=== PATIENT | male | born 1945 | race Caucasian/White ===

== ENCOUNTER 2017-09-11 10:41 | Inpatient (IN) | payer MEDICARE, OTHER ==
[2017-09-11] MEDS ORDERED: ONDANSETRON HCL INJ/PF 4 MG/2 ML SDV IV ONE (11:06)
[2017-09-11] MEDS ORDERED: RINGERS SOLUTION,LACTATED 1,000 ML IV ONE (11:06)
--- NOTE | 2017-09-11 11:09 | ER Document Report ---
ED Medical Screen (RME) - General Chief Complaint: Nausea/Vomiting/Diarrhea Stated Complaint: VOMITING Time Seen by Provider: 09/11/17 11:05 Notes: Patient says he is having vomiting and diarrhea for the past 6 days. He is having as many as 10-15 episodes of vomiting per day and just as many episodes of diarrhea. Has not seen any blood in the vomitus or the bowel movements. says he has lost about 14 pounds during this past week. He was seen at a local urgent care on Thursday and they gave him Zofran and Imodium, but cannot helping. Patient has not noted any fever. Past surgeries include appendix and gallbladder removals. History of insulin-dependent diabetes. TRAVEL OUTSIDE OF THE [place] IN LAST 30 DAYS: No - Related Data Allergies/Adverse Reactions: ciprofloxacin [From Cipro] Allergy (Verified 09/11/17 10:49) latex Allergy (Verified 09/11/17 10:49) levofloxacin [From Levaquin] Allergy (Verified 09/11/17 10:49) metformin Allergy (Verified 09/11/17 10:49) Penicillins Allergy (Verified 09/11/17 10:49) valdecoxib [From Bextra] Allergy (Verified 09/11/17 10:49) Home Medications: Current Home Medications Atorvastatin Calcium 40 mg PO DAILY 09/11/17 [History] Ergocalciferol (Vitamin D2) [Vitamin D] 1,000 units PO DAILY 09/11/17 [History] Glimepiride 4 mg PO DAILY 09/11/17 [History] Linagliptin [Tradjenta] 5 mg PO DAILY 09/11/17 [History] Past Medical History - Social History Chew tobacco use (# tins/day): No Frequency of alcohol use: None Drug Abuse: None Renal/ Medical History: Denies: Hx Peritoneal Dialysis Physical Exam - Vital signs Vitals: Temp Pulse Resp BP Pulse Ox 98.4 F 85 20 131/82 H 95 09/11/17 10:48 09/11/17 10:48 09/11/17 10:48 09/11/17 10:48 09/11/17 10:48 Course - Vital Signs Vital signs: Temp Pulse Resp BP Pulse Ox 98.4 F 85 20 131/82 H 95 09/11/17 10:48 09/11/17 10:48 09/11/17 10:48 09/11/17 10:48 09/11/17 10:48
[2017-09-11 11:42] LABS: ABSOLUTE MONOCYTES (AUTO) 1.8 10^3/uL (0.1-1.4); ABSOLUTE NEUT (AUTO) 9.3 10^3/uL (1.7-8.2); BASOPHILS % (AUTO) 0.2 % (0-2); EOSINOPHILS % (AUTO) 6.6 % (0-6); HEMATOCRIT 46.1 % (37.9-51.0); HEMOGLOBIN 15.4 g/dL (13.5-17.0); HGB HCT DIFFERENCE 0.1; MEAN CORPUSCULAR HEMOGLOBIN 29.9 pg (27.0-33.4); MEAN CORPUSCULAR HGB CONC 33.3 g/dL (32.0-36.0); MEAN CORPUSCULAR VOLUME 90 fl (80-97); MONOCYTES % (AUTO) 11.6 % (3-13); RED BLOOD COUNT 5.14 10^6/uL (4.35-5.55); SEGMENTED NEUTROPHILS % (AUTO) 61.6 % (42-78)
[2017-09-11 12:06] LABS: ALANINE AMINOTRANSFERASE 42 U/L (21-72); ALBUMIN 4.1 g/dL (3.5-5.0); ALKALINE PHOSPHATASE 81 U/L (38-126); ANION GAP 15 (5-19); ASPARTATE AMINO TRANSFERASE 22 U/L (17-59); BILIRUBIN,DIRECT 0.3 mg/dL (0.0-0.4); BILIRUBIN,TOTAL 0.7 mg/dL (0.2-1.3); BLOOD UREA NITROGEN 13 mg/dL (7-20); CALCIUM 9.5 mg/dL (8.4-10.2); CARBON DIOXIDE 27 mmol/L (22-30); CHLORIDE 104 mmol/L (98-107); CREATININE RESULT 0.88 mg/dL (0.52-1.25); GLUCOSE 120 mg/dL (75-110); LIPASE 197.4 U/L (23-300); SODIUM 146.4 mmol/L (137-145); TOTAL PROTEIN 6.4 g/dL (6.3-8.2)
[2017-09-11 12:25] LABS: APPEARANCE,URINE CLEAR; BILIRUBIN,URINE NEGATIVE (NEGATIVE); GLUCOSE, URINE NEGATIVE (NEGATIVE); KETONES,URINE NEGATIVE (NEGATIVE); LEUKOCYTE ESTERASE,URINE NEGATIVE (NEGATIVE); NITRITE,URINE NEGATIVE (NEGATIVE); PROTEIN,URINE 30 mg/dL (NEGATIVE); URINE SPECIFIC GRAVITY 1.025; UROBILINOGEN,URINE NEGATIVE mg/dL (<2.0)
--- NOTE | 2017-09-11 16:02 | RADIOLOGY REPORT (SQ) ---
EXAM DESCRIPTION: CT ABD/PELVIS WITH IV ORAL COMPLETED DATE/TIME: 09/11/2017 3:48 pm REASON FOR STUDY: abd pain, diarrhea COMPARISON: None. TECHNIQUE: CT scan of the abdomen and pelvis performed with intravenous and oral contrast using ashly inna scanning technique with dynamic intravenous contrast injection. Images reviewed with lung, soft t issue, and bone windows. Reconstructed coronal and sagittal MPR images reviewed. Delayed images for e valuation of the urinary system also acquired. All images stored on PACS. All CT scanners at this facility use dose modulation, iterative reconstruction, and/or weight based d osing when appropriate to reduce radiation dose to as low as reasonably achievable (ALARA). [facility]: Dose Right [facility]: CareDose [facility]: Dose Right [facility]: Teradose 4D [facility]: CriticalBlue CONTRAST TYPE AND DOSE: contrast/concentration: Isovue mg/ml; Total Contrast Delivered: 100.0 ml; T otal Saline Delivered: 70.1 ml RENAL FUNCTION: GFR > 60. RADIATION DOSE: CT Rad equipment meets quality standard of care and radiation dose reduction techniq ues were employed. CTDIvol: 16.6 - 19.5 mGy. DLP: 2053 mGy-cm. . LIMITATIONS: None. FINDINGS: LOWER CHEST: Interstitial changes appear chronic. LIVER: Normal size. No masses. No dilated ducts. SPLEEN: Normal size. No focal lesions. PANCREAS: No masses. No significant calcifications. No adjacent inflammation or peripancreatic fluid collections. Pancreatic duct not dilated. GALLBLADDER: Surgically absent. ADRENAL GLANDS: No significant masses or asymmetry. RIGHT KIDNEY AND URETER: No solid masses. No significant calcifications. No hydronephrosis or hyd roureter. LEFT KIDNEY AND URETER: No solid masses. No significant calcifications. No hydronephrosis or hydr oureter. AORTA AND VESSELS: Infrarenal abdominal aortic aneurysm measuring 5.2 x 4.6 cm. Mural thrombus. RETROPERITONEUM: No retroperitoneal adenopathy, hemorrhage or masses. BOWEL AND PERITONEAL CAVITY: No obstruction. No visualized masses. No free fluid. No inflammatory ch anges or thickening of bowel wall. APPENDIX: Normal. PELVIS: No significant masses. Normal bladder. No free fluid. ABDOMINAL WALL: No masses. No hernias. BONES: No significant or acute findings. OTHER: No other significant finding. IMPRESSION: Infrarenal abdominal aortic aneurysm measuring 5.2 x 4.6 cm. No explanation for diarrhea. TECHNICAL DOCUMENTATION: JOB ID: [id number] Quality ID # [id number]: Final reports with documentation of one or more dose reduction techniques (e.g., Au tomated exposure control, adjustment of the mA and/or kV according to patient size, use of iterative reconstruction technique) 2010 [employer]- All Rights Reserved
--- NOTE | 2017-09-11 16:31 | ER Document Report ---
ED GI/ - General Chief Complaint: Nausea/Vomiting/Diarrhea Stated Complaint: VOMITING Time Seen by Provider: 09/11/17 11:05 Notes: Patient states that he has had on and off diarrhea for several weeks now. Intermittent abdominal pain in the lower abdomen. Thirsty. Nothing seems to set well. Also having increased amount of vomiting. Denies any chest pain or shortness of breath. Here from out of town. Denies any recent antibiotic use. TRAVEL OUTSIDE OF THE [place] IN LAST 30 DAYS: No - HPI Patient complains to provider of: Abdominal pain, Diarrhea, Vomiting Onset: Last week Quality of pain: Achy Severity at maximum: Moderate Severity in ED: Moderate Pain Level: 2 Context: denies: Bad food, Lifting, Out of the country travel, , Recent trauma, Other Location: LLQ, RLQ Associated symptoms: Diarrhea, Vomiting - Related Data Allergies/Adverse Reactions: ciprofloxacin [From Cipro] Allergy (Verified 09/11/17 10:49) latex Allergy (Verified 09/11/17 10:49) levofloxacin [From Levaquin] Allergy (Verified 09/11/17 10:49) metformin Allergy (Verified 09/11/17 10:49) Penicillins Allergy (Verified 09/11/17 10:49) valdecoxib [From Bextra] Allergy (Verified 09/11/17 10:49) Home Medications: Current Home Medications Alfuzosin HCl [Alfuzosin HCl ER] 10 mg PO DAILY 09/11/17 [History] Amlodipine Besylate [Norvasc 5 mg Tablet] 5 mg PO DAILY 09/11/17 [History] Aspirin 81 mg PO DAILY 09/11/17 [History] Atorvastatin Calcium 40 mg PO DAILY 09/11/17 [History] Baclofen [Baclofen 10 mg Tablet] 10 mg PO BID 09/11/17 [History] Clopidogrel Bisulfate [Clopidogrel] 75 mg PO DAILY 09/11/17 [History] Duloxetine HCl [Cymbalta] 60 mg PO DAILY 09/11/17 [History] Ergocalciferol (Vitamin D2) [Vitamin D] 1,000 units PO DAILY 09/11/17 [History] Glimepiride 4 mg PO DAILY 09/11/17 [History] Insulin Degludec [Tresiba Flextouch U-100] 32 unit SQ DAILY 09/11/17 [History] Isosorbide Mononitrate [Isosorbide Mononitrate ER] 30 mg PO DAILY 09/11/17 [ History] Levothyroxine Sodium 100 mcg PO DAILY 09/11/17 [History] Linagliptin [Tradjenta] 5 mg PO DAILY 09/11/17 [History] Mirabegron [Myrbetriq] 25 mg PO DAILY 09/11/17 [History] [place]-3 Fatty Acids/Fish Oil [Fish Oil 1,000 mg Capsule] 1,000 mg PO DAILY 09/11 [History] Pantoprazole Sodium [Protonix] 40 mg PO DAILY 09/11/17 [History] Pirfenidone [Esbriet] 267 mg PO DAILY 09/11/17 [History] Past Medical History - General Information source: Patient - Social History Smoking Status: Never Smoker Chew tobacco use (# tins/day): No Frequency of alcohol use: None Drug Abuse: None Lives with: Spouse/Significant other Family History: Reviewed & Not Pertinent Patient has suicidal ideation: No Patient has homicidal ideation: No Endocrine Medical History: Reports: Hx Diabetes Mellitus Type 2 Renal/ Medical History: Denies: Hx Peritoneal Dialysis Musculoskeltal Medical History: Reports Hx Arthritis Review of Systems - Review of Systems Constitutional: No symptoms reported EENT: No symptoms reported Cardiovascular: No symptoms reported Respiratory: No symptoms reported Gastrointestinal: Abdominal pain, Diarrhea, Nausea, Vomiting Genitourinary: No symptoms reported Male Genitourinary: No symptoms reported Musculoskeletal: No symptoms reported Skin: No symptoms reported Hematologic/Lymphatic: No symptoms reported Neurological/Psychological: No symptoms reported Physical Exam - Vital signs Vitals: Temp Pulse Resp BP Pulse Ox 98.4 F 85 20 131/82 H 95 09/11/17 10:48 09/11/17 10:48 09/11/17 10:48 09/11/17 10:48 09/11/17 10:48 Interpretation: Normal - General General appearance: Appears well, Alert - HEENT Head: Normocephalic, Atraumatic Eyes: Normal Pupils: PERRL - Respiratory Respiratory status: No respiratory distress Chest status: Nontender Breath sounds: Normal Chest palpation: Normal - Cardiovascular Rhythm: Regular Heart sounds: Normal auscultation Murmur: No - Abdominal Inspection: Normal Distension: No distension Bowel sounds: Normal Tenderness: Tender - Bilateral lower quadrant Organomegaly: No organomegaly - Back Back: Normal, Nontender - Extremities General upper extremity: Normal inspection, Nontender, Normal color, Normal ROM , Normal temperature General lower extremity: Normal inspection, Nontender, Normal color, Normal ROM , Normal temperature, Normal weight bearing. No: David's sign - Neurological Neuro grossly intact: Yes Cognition: Normal Orientation: AAOx4 Dorene Coma Scale Eye Opening: Spontaneous Hanna Coma Scale Verbal: Oriented Hanna Coma Scale Motor: Obeys Commands Dorene Coma Scale Total: 15 Speech: Normal Motor strength normal: LUE, RUE, LLE, RLE Sensory: Normal - Psychological Associated symptoms: Normal affect, Normal mood - Skin Skin Temperature: Warm Skin Moisture: Dry Skin Color: Normal Course - Re-evaluation Re-evalutation: 09/11/17 16:47 No obvious reason why patient is having intractable nausea vomiting and diarrhea. Does have an elevated WBC count. We will give him some hydrocodone here. Has had some fluids. Will consult hospitalist for admission at this time. 09/11/17 16:47 Hospitalist has been consulted. Dr. Martino will place in observation and will evaluate patient. - Vital Signs Vital signs: Temp Pulse Resp BP Pulse Ox 98.4 F 68 16 129/87 H 97 09/11/17 10:48 09/11/17 16:26 09/11/17 16:26 09/11/17 16:26 09/11/17 16:26 - Laboratory Result Diagrams: 09/11/17 11:23 09/11/17 11:23 Laboratory results interpreted by me: 09/11/17 09/11/17 09/11/17 11:23 11:23 11:50 WBC 15.0 H RDW 15.0 H Eosinophils % 6.6 H Absolute Neutrophils 9.3 H Absolute Monocytes 1.8 H Absolute Eosinophils 1.0 H Sodium 146.4 H Glucose 120 H Urine Protein 30 H Discharge - Discharge Clinical Impression: Intractable vomiting Qualifiers: Vomiting type: unspecified Nausea presence: unspecified Qualified Code(s): R11.10 - Vomiting, unspecified Diarrhea Qualifiers: Diarrhea type: unspecified type Qualified Code(s): R19.7 - Diarrhea, unspecified Disposition: ADMITTED OBSERVATION Admitting Provider: Hospitalist Unit Admitted: Medical Floor
[2017-09-11] MEDS ORDERED: HYDROCODONE/ACETAMINOPHEN 5-325 MG TABLET PO ONE (16:46)
[2017-09-11] MEDS ORDERED: ONDANSETRON 4 MG TAB.RAPDIS PO PRN (17:56)
[2017-09-11] MEDS ORDERED: ACETAMINOPHEN 325 MG TABLET PO PRN (17:56)
[2017-09-11] MEDS ORDERED: TEMAZEPAM 15 MG CAPSULE PO PRN (17:56)
--- NOTE | 2017-09-11 17:56 | PDOC H&P ---
History of Present Illness Admission Date/PCP: Out of town PCP: Abhi Hector Patient complains of: Severe vomitting and diarrhea. History of Present Illness: KHURRAM BLOOM is a 72 year old male who is currently in town visiting family. Normally, he lives in [place]. The patient is here with his . They drove here last Thursday. On Thursday he was feeling fine. Thursday morning he woke up and developed horrible cramping in his lower abdomen followed by explosive diarrhea. Initially, he had several hours worth of diarrhea. Then he started to have vomiting with diarrhea. The diarrhea is uncontrollable and explosive. It is waking him up from sleep. Every time he tries to drink fluids he vomits the fluids. The fluids also aggravate the diarrhea. He has not had any fevers. He has not noticed any blood in the diarrhea. He has no ill contacts. He has been with his very closely and she is not ill. He has been visiting family into homes and no one is ill. The only thing that he ate which was different than his is chicken [employer] main in the [facility] while they were driving on Thursday. The patient started to feel better on Thursday and a part of a sandwich. About an hour later this led to worsened nausea, vomiting or diarrhea. He went to see a provider at urgent care on Thursday and was started on Zofran. Unfortunately, he has been using the Zofran as prescribed without any relief. He tried to eat turkey and mashed potatoes yesterday but his symptoms got progressively worse. He describes the diarrhea is foul-smelling. He describes the color is green and angulo. His urine is dark. His only other symptoms are intermittent frontal headaches. He feels generally weak and states that he has lost 14 pounds since last Thursday. Past Medical History Cardiac Medical History: Reports: Coronary Artery Disease, Other - Stents, bradycardia, pacemaker Pulmonary History Note: pulmonary fibrosis Neurological Medical History: Reports: Other - TIA Endocrine Medical History: Reports: Diabetes Mellitus Type 2 GI Medical History: Reports: None GI History Note: Patient may have mild IBS and a remote history of diverticulosis Musculoskeltal Medical History: Reports: Arthritis, Fibromyalgia Past Surgical History Past Surgical History: Reports: Appendectomy, Cholecystectomy, Coronary Artery Bypass Graft, Coronary Stent, Orthopedic Surgery, Pacemaker, Other - Umbilical abscess in 1989 Social History Lives with: Spouse/Significant other Smoking Status: Former Smoker Frequency of Alcohol Use: None Hx Recreational Drug Use: No Drugs: None Hx Prescription Drug Abuse: No - Advance Directive Resuscitation Status: Full Code Surrogate healthcare decision maker:: Family History Family History: Reviewed & Not Pertinent Parental Family History Reviewed: Yes - Father: VT age 69 leading to ; mother: Aneurysm, COPD Children Family History Reviewed: No Sibling(s) Family History Reviewed.: No Medication/Allergy Home Medications: Alfuzosin HCl [Alfuzosin HCl ER] 10 mg PO DAILY 09/11/17 Amlodipine Besylate [Norvasc 5 mg Tablet] 5 mg PO DAILY 09/11/17 Aspirin 81 mg PO DAILY 09/11/17 Atorvastatin Calcium 40 mg PO DAILY 09/11/17 Baclofen [Baclofen 10 mg Tablet] 10 mg PO BID 09/11/17 Clopidogrel Bisulfate [Clopidogrel] 75 mg PO DAILY 09/11/17 Duloxetine HCl [Cymbalta] 60 mg PO DAILY 09/11/17 Ergocalciferol (Vitamin D2) [Vitamin D] 1,000 units PO DAILY 09/11/17 Glimepiride 4 mg PO DAILY 09/11/17 Insulin Degludec [Tresiba Flextouch U-100] 32 unit SQ DAILY 09/11/17 Isosorbide Mononitrate [Isosorbide Mononitrate ER] 30 mg PO DAILY 09/11/17 Levothyroxine Sodium 100 mcg PO DAILY 09/11/17 Linagliptin [Tradjenta] 5 mg PO DAILY 09/11/17 Mirabegron [Myrbetriq] 25 mg PO DAILY 09/11/17 [place]-3 Fatty Acids/Fish Oil [Fish Oil 1,000 mg Capsule] 1,000 mg PO DAILY 09/11 Pantoprazole Sodium [Protonix] 40 mg PO DAILY 09/11/17 Pirfenidone [Esbriet] 267 mg PO DAILY 09/11/17 Allergies/Adverse Reactions: ciprofloxacin [From Cipro] Allergy (Verified 09/11/17 10:49) latex Allergy (Verified 09/11/17 10:49) levofloxacin [From Levaquin] Allergy (Verified 09/11/17 10:49) metformin Allergy (Verified 09/11/17 10:49) Penicillins Allergy (Verified 09/11/17 10:49) valdecoxib [From Bextra] Allergy (Verified 09/11/17 10:49) Review of Systems Constitutional: PRESENT: fatigue, headache(s), weight loss Eyes: ABSENT: visual disturbances Ears: ABSENT: hearing changes Nose, Mouth, and Throat: ABSENT: as per HPI, headache(s), mouth pain, sore throat, vertigo, other Breasts: ABSENT: as per HPI, other Cardiovascular: ABSENT: chest pain, dyspnea on exertion, edema, orthropnea, palpitations Respiratory: PRESENT: as per HPI Gastrointestinal: PRESENT: as per HPI Genitourinary: ABSENT: dysuria, hematuria Musculoskeletal: ABSENT: joint swelling Integumentary: ABSENT: rash, wounds Neurological: ABSENT: abnormal gait, abnormal speech, confusion, dizziness, focal weakness, syncope Psychiatric: ABSENT: anxiety, depression, homidical ideation, suicidal ideation Endocrine: ABSENT: cold intolerance, heat intolerance, polydipsia, polyuria Hematologic/Lymphatic: ABSENT: easy bleeding, easy bruising Allergic/Immunologic: ABSENT: as per HPI, seasonal rhinorrhea, other Physical Exam Vital Signs: Temp Pulse Resp BP Pulse Ox 98.4 F 68 16 129/87 H 97 09/11/17 10:48 09/11/17 16:26 09/11/17 16:26 09/11/17 16:26 09/11/17 16:26 Intake & Output 09/10/17 09/11/17 09/12/17 06:59 06:59 06:59 Weight 99.5 kg Additional comments: The patient does not appear to be in any distress. His cognition and mentation are appropriate. He is able to follow all commands. His facial appearance is normal. Cranial nerves II through XII are intact. The lips are slightly dry, but, the mucous membranes appear to be moist. The patient has many teeth missing, but, his dentition is fair. His neck is supple. The trachea is midline. Thyroid is nonpalpable. He does not have any JVD. He does not have any cervical, supraclavicular or axillary lymphadenopathy. His lungs are clear anteriorly. He does have Velcro rales in the posterior lung pelaez at the bases. The extend one quarter of the way up. The cardiac exam is regular. I do not appreciate any murmurs, gallops or rubs. The abdomen is diffusely distended but not tympanitic. Bowel sounds are present and are hyperactive. The patient has a diffuse tenderness throughout the abdomen. I do not appreciate any guarding or rebound and there are no hernias or masses present. The lower extremities are warm to touch. The patient does not have any acute skin lesions or rashes. The patient does not have any pitting edema. Results Laboratory Results: 09/11/17 11:23 09/11/17 11:23 09/11/17 09/11/17 09/11/17 11:23 11:23 11:50 WBC 15.0 H RBC 5.14 Hgb 15.4 Hct 46.1 MCV 90 MCH 29.9 MCHC 33.3 RDW 15.0 H Plt Count 286 Seg Neutrophils % 61.6 Lymphocytes % 20.0 Monocytes % 11.6 Eosinophils % 6.6 H Basophils % 0.2 Absolute Neutrophils 9.3 H Absolute Lymphocytes 3.0 Absolute Monocytes 1.8 H Absolute Eosinophils 1.0 H Absolute Basophils 0.0 Sodium 146.4 H Potassium 4.0 Chloride 104 Carbon Dioxide 27 Anion Gap 15 BUN 13 Creatinine 0.88 Est GFR ( Amer) > 60 Est GFR (Non-Af Amer) > 60 Glucose 120 H Calcium 9.5 Total Bilirubin 0.7 AST 22 ALT 42 Alkaline Phosphatase 81 Total Protein 6.4 Albumin 4.1 Lipase 197.4 Urine Color YELLOW Urine Appearance CLEAR Urine pH 5.0 Ur Specific [place] 1.025 Urine Protein 30 H Urine Glucose (UA) NEGATIVE Urine Ketones NEGATIVE Urine Blood NEGATIVE Urine Nitrite NEGATIVE Ur Leukocyte Esterase NEGATIVE Urine WBC (Auto) 2 Urine RBC (Auto) 1 Stool Occult Blood 09/11/17 14:55 WBC RBC Hgb Hct MCV MCH MCHC RDW Plt Count Seg Neutrophils % Lymphocytes % Monocytes % Eosinophils % Basophils % Absolute Neutrophils Absolute Lymphocytes Absolute Monocytes Absolute Eosinophils Absolute Basophils Sodium Potassium Chloride Carbon Dioxide Anion Gap BUN Creatinine Est GFR ( Amer) Est GFR (Non-Af Amer) Glucose Calcium Total Bilirubin AST ALT Alkaline Phosphatase Total Protein Albumin Lipase Urine Color Urine Appearance Urine pH Ur Specific [place] Urine Protein Urine Glucose (UA) Urine Ketones Urine Blood Urine Nitrite Ur Leukocyte Esterase Urine WBC (Auto) Urine RBC (Auto) Stool Occult Blood NEGATIVE Impressions: Abdomen/Pelvis CT 09/11/17 00:00 IMPRESSION: Infrarenal abdominal aortic aneurysm measuring 5.2 x 4.6 cm. No explanation for diarrhea. Assessment & Plan - Diagnosis (1) Diarrhea Qualifiers: Diarrhea type: unspecified type Qualified Code(s): R19.7 - Diarrhea, unspecified Is this a current diagnosis for this admission?: Yes Plan: C. difficile toxin assay is negative. Cultures have been ordered and are pending. The differential includes infectious diarrhea, food poisoning, medication effect or diffuse colitis. This is unlikely to be infectious as no other family members are ill. However, if an organism has a long incubation. We still need to consider infections. Food poisoning should be more self- limited than this patient's illness. I will need to check the patient's current medications. There is no evidence of colitis on the CT scan which is reassuring. The patient will be treated supportively for now. I will hold off on antibiotics. (2) Intractable vomiting Qualifiers: Vomiting type: unspecified Nausea presence: unspecified Qualified Code(s) : R11.10 - Vomiting, unspecified Is this a current diagnosis for this admission?: Yes Plan: Continue supportive treatment. Differential as above. (3) Eosinophilic leukocytosis Is this a current diagnosis for this admission?: Yes Plan: This is likely associated with the acute illness. Further investigation for parasites may be warranted. (4) Diabetes type 2, controlled Qualifiers: Diabetes mellitus complication detail: with unspecified neuropathy Is this a current diagnosis for this admission?: Yes Plan: For now, I will hold long-acting insulin and treat with sliding scale. (5) Neuropathy Is this a current diagnosis for this admission?: Yes (6) Coronary artery disease Is this a current diagnosis for this admission?: Yes Plan: I will continue the patient's cardiac medications. (7) Cerebrovascular disease Is this a current diagnosis for this admission?: Yes (8) Hypothyroidism Is this a current diagnosis for this admission?: Yes Plan: Continue supplementation with Synthroid. (9) Pulmonary fibrosis Is this a current diagnosis for this admission?: Yes Plan: I will ensure that pirfenidone is not associated with this side effect and if it is not I will continue the medication. - Time Time Spent: 50 to 70 Minutes - Inpatient Certification Medical Necessity: Need Close Monitoring Due to Risk of Patient Decompensation, Need For IV Fluids, Risk of Complication if Not Cared For in Hospital - Plan Summary Plan Summary: The patient will be placed on observation status. Despite the fact that he has had severe symptoms for almost a week he does not have any significant laboratory abnormalities. I would have expected his bicarbonate to be very low. He may have a superimposed metabolic alkalosis. In any event, his vital signs are normal and his laboratory work is fairly normal. Therefore, I will try to treat the patient with fluids overnight. I will keep him on clears and try to advance his diet tomorrow. I will wait for the results and determine tomorrow whether or not he can be discharged with close follow-up. Since he lives out of town we may need to extend his hospitalization to determine the etiology so that we know more precisely how to treat the patient.
[2017-09-11] MEDS ORDERED: OXYCODONE HCL IR 5 MG TABLET PO PRN (18:05)
[2017-09-11] MEDS ORDERED: DEXTROSE 40% GEL 15 GM TUBE PO PRN ×2 (18:11)
[2017-09-11] MEDS ORDERED: GLUCAGON,HUMAN RECOMB 1 MG INJ IM PRN (18:11)
[2017-09-11] MEDS ORDERED: DEXTROSE 50%-WATER 25 GM/50 ML DISP.SYRIN IV PRN ×2 (18:11)
[2017-09-11] MEDS: ATORVASTATIN CALCIUM 40 MG TABLET PO SCH (22:16)
[2017-09-11] MEDS: FAMOTIDINE INJ/PF 20 MG/2 ML SDV IV SCH (22:16)
[2017-09-12] MEDS: LEVOTHYROXINE SODIUM 0.1 MG TABLET PO SCH (05:03)
[2017-09-12 06:54] LABS: ABSOLUTE BASOPHILS # (AUTO) 0.1 10^3/uL (0.0-0.2); ABSOLUTE LYMPHOCYTES (AUTO) 3.7 10^3/uL (0.5-4.7); ABSOLUTE MONOCYTES (AUTO) 1.6 10^3/uL (0.1-1.4); ABSOLUTE NEUT (AUTO) 6.2 10^3/uL (1.7-8.2); BASOPHILS % (AUTO) 0.9 % (0-2); EOSINOPHILS % (AUTO) 7.9 % (0-6); HEMATOCRIT 40.3 % (37.9-51.0); HEMOGLOBIN 13.6 g/dL (13.5-17.0); HGB HCT DIFFERENCE 0.5; LYMPHOCYTES % (AUTO) 29.4 % (13-45); MEAN CORPUSCULAR HEMOGLOBIN 30.5 pg (27.0-33.4); MEAN CORPUSCULAR HGB CONC 33.8 g/dL (32.0-36.0); MEAN CORPUSCULAR VOLUME 90 fl (80-97); MONOCYTES % (AUTO) 12.5 % (3-13); RED BLOOD COUNT 4.47 10^6/uL (4.35-5.55); RED CELL DISTRIBUTION WIDTH 14.8 % (11.5-14.0); SEGMENTED NEUTROPHILS % (AUTO) 49.3 % (42-78); WHITE BLOOD COUNT 12.7 10^3/uL (4.0-10.5)
[2017-09-12 07:24] LABS: ANION GAP 13 (5-19); BLOOD UREA NITROGEN 9 mg/dL (7-20); CALCIUM 8.7 mg/dL (8.4-10.2); CARBON DIOXIDE 26 mmol/L (22-30); CHLORIDE 106 mmol/L (98-107); CREATININE RESULT 0.84 mg/dL (0.52-1.25); GLUCOSE 90 mg/dL (75-110); MAGNESIUM 1.6 mg/dL (1.6-2.3); PHOSPHORUS 3.4 mg/dL (2.5-4.5); POTASSIUM 3.7 mmol/L (3.6-5.0); SODIUM 144.9 mmol/L (137-145)
[2017-09-12] MEDS: DEXTROSE 5%-1/2 NORMAL SALINE 1,000 ML IV PRN ×2 (08:25→21:56)
[2017-09-12] MEDS: BACLOFEN 10 MG TABLET PO SCH ×2 (09:24→16:56)
[2017-09-12] MEDS: CHOLECALCIFEROL (D3) 1,000 UNIT TABLET PO SCH (09:24)
[2017-09-12] MEDS: ASPIRIN 81 MG TABLET, CHEWABLE PO SCH (09:24)
[2017-09-12] MEDS: AMLODIPINE BESYLATE 5 MG TABLET PO SCH (09:24)
[2017-09-12] MEDS: ISOSORBIDE MONONITRATE 30 MG TAB.ER.24H PO SCH (09:25)
[2017-09-12] MEDS: CLOPIDOGREL BISULFATE 75 MG TABLET PO SCH (09:25)
[2017-09-12] MEDS: FAMOTIDINE INJ/PF 20 MG/2 ML SDV IV SCH ×2 (09:25→21:55)
[2017-09-12] MEDS: DULOXETINE HCL 30 MG CAPSULE.DR PO SCH (09:25)
[2017-09-12] MEDS ORDERED: PIRFENIDONE 267 MG PO SCH (10:00)
[2017-09-12] MEDS ORDERED: ERGOCALCIFEROL 1000 UNIT PO SCH (10:00)
[2017-09-12] MEDS ORDERED: (PENDING PHARMACY ID) (Alfuzosin Hcl [Alfuzosin Hcl Er] 10 MG) PO SCH (10:00)
--- NOTE | 2017-09-12 16:09 | RADIOLOGY REPORT (SQ) ---
EXAM DESCRIPTION: CT HEAD WITHOUT COMPLETED DATE/TIME: 09/12/2017 3:57 pm REASON FOR STUDY: DIARRHEA NO CHARGE TO PATIENT A05.1 BOTULISM FOOD POISONING COMPARISON: None. TECHNIQUE: Axial images acquired through the brain without intravenous contrast. Images reviewed wi th bone, brain and subdural windows. Images stored on PACS. All CT scanners at this facility use dose modulation, iterative reconstruction, and/or weight based d osing when appropriate to reduce radiation dose to as low as reasonably achievable (ALARA). [facility]: Dose Right [facility]: CareDose [facility]: Dose Right [facility]: Teradose 4D [facility]: [place] RADIATION DOSE: mGy. LIMITATIONS: None. FINDINGS: NOTE: Initially interpreted under the incorrect name on 09/11/2017. Re- interpreted and officially read dictated on 09/12/2017. VENTRICLES: Normal size and contour. CEREBRUM: No masses. No hemorrhage. No midline shift. No evidence for acute infarction. Normal gra y/white matter differentiation. No areas of low density in the white matter. CEREBELLUM: No masses. No hemorrhage. No alteration of density. No evidence for acute infarction. EXTRAAXIAL SPACES: No fluid collections. No masses. ORBITS AND GLOBE: No intra- or extraconal masses. Normal contour of globe without masses. CALVARIUM: No fracture. PARANASAL SINUSES: Chronic right maxillary mucosal thickening. SOFT TISSUES: No mass or hematoma. OTHER: No other significant finding. IMPRESSION: No acute intracranial abnormality. EVIDENCE OF ACUTE STROKE: NO. COMMENT: Quality ID # [id number]: Final reports with documentation of one or more dose reduction techniques (e.g., Automated exposure control, adjustment of the mA and/or kV according to patient size, use of iterative reconstruction technique) TECHNICAL DOCUMENTATION: JOB ID: [id number] [email or web address]- All Rights Reserved
--- NOTE | 2017-09-12 16:11 | RADIOLOGY REPORT (SQ) ---
EXAM DESCRIPTION: CT CERVICAL SPINE WITHOUT COMPLETED DATE/TIME: 09/12/2017 3:57 pm REASON FOR STUDY: DIARRHEA NO CHARGE TO PATIENT A05.1 BOTULISM FOOD POISONING COMPARISON: None. TECHNIQUE: Axial images acquired through the cervical spine without intravenous contrast. Images re viewed with lung, soft tissue and bone windows. Reconstructed coronal and sagittal MPR images review ed. Images stored on PACS. All CT scanners at this facility use dose modulation, iterative reconstruction, and/or weight based d osing when appropriate to reduce radiation dose to as low as reasonably achievable (ALARA). [facility]: Dose Right [facility]: CareDose [facility]: Dose Right [facility]: Teradose 4D [facility]: [employer] RADIATION DOSE: mGy. LIMITATIONS: None. FINDINGS: Note: Initially interpreted under the wrong name on 09/11/2017. Returned for reinterpreta tion and re-dictation on 09/12/2017. ALIGNMENT: Anatomic. MINERALIZATION: Normal. VERTEBRAL BODIES: No fractures or dislocation. DISCS: Disc disease with small disc osteophyte complexes at C4-5 and C5-6 particularly. FACETS, LATERAL MASSES, POSTERIOR ELEMENTS: Facet arthropathy. No fractures. No dislocation. No ac leighton findings. HARDWARE: None in the spine. VISUALIZED RIBS: No fractures. LUNG APICES AND SOFT TISSUES: Apical emphysema. 2 cm right thyroid nodule. OTHER: No other significant finding. IMPRESSION: Chronic degenerative cervical spine changes without evidence of acute fracture or malali gnment. TECHNICAL DOCUMENTATION: JOB ID: [id number] Quality ID # [id number]: Final reports with documentation of one or more dose reduction techniques (e.g., Au tomated exposure control, adjustment of the mA and/or kV according to patient size, use of iterative reconstruction technique) 2010 [employer]- All Rights Reserved
--- NOTE | 2017-09-12 16:48 | PDOC PROGRESS REPORT ---
Subjective Progress Note for:: 09/12/17 Subjective:: The patient is admitted for intractable nausea, vomiting and diarrhea. His symptoms started approximately 10 days ago. He has lost a total of 14 pounds. The patient was placed in observation status. This morning, he felt slightly better. Therefore, I advanced his diet from clears to a low fat low residue diet. After he ate lunch within 1 hour he started to have profuse diarrhea again. Therefore, patient is not ready for discharge. Currently, his stool sample is unremarkable, but, I will not have the final results until tomorrow. The patient does not live in the [facility]. He is from [place]. I feel that the patient must have his test results prior to being discharged and prior to being able to drive back to [place]. He notes less abdominal pain this morning, but, he has taken oxycodone on 2 occasions. Physical Exam Vital Signs: Temp Pulse Resp BP Pulse Ox 98.3 F 63 16 141/84 H 98 09/12/17 08:37 09/12/17 08:37 09/12/17 08:37 09/12/17 08:37 09/12/17 08:37 Intake & Output 09/11/17 09/12/17 09/13/17 06:59 06:59 06:59 Intake Total 1405 Output Total 900 Balance 505 Weight 98.4 kg Additional comments: The patient is not in any distress. He is fairly nontoxic in appearance. His cognition and mentation appear appropriate. His lungs demonstrate clear breath sounds anteriorly. He has Velcro rales in the posterior bases. His cardiac exam is regular. He does not have any murmurs, gallops or rubs. The abdomen is distended but less so than yesterday. He has bowel sounds present. They are less hyperactive. He does not have any tympany. I am able to palpate the abdomen deeper today. He does not have guarding or rebound present and there are no hernias or masses present. The lower extremities are warm to touch without edema. No Acute skin lesions or rashes are present. Results Laboratory Results: 09/12/17 05:26 09/12/17 05:26 09/12/17 09/12/17 05:26 05:26 WBC 12.7 H RBC 4.47 Hgb 13.6 Hct 40.3 MCV 90 MCH 30.5 MCHC 33.8 RDW 14.8 H Plt Count 232 Seg Neutrophils % 49.3 Lymphocytes % 29.4 Monocytes % 12.5 Eosinophils % 7.9 H Basophils % 0.9 Absolute Neutrophils 6.2 Absolute Lymphocytes 3.7 Absolute Monocytes 1.6 H Absolute Eosinophils 1.0 H Absolute Basophils 0.1 Sodium 144.9 Potassium 3.7 Chloride 106 Carbon Dioxide 26 Anion Gap 13 BUN 9 Creatinine 0.84 Est GFR ( Amer) > 60 Est GFR (Non-Af Amer) > 60 Glucose 90 Calcium 8.7 Phosphorus 3.4 Magnesium 1.6 Impressions: Abdomen/Pelvis CT 09/11/17 00:00 IMPRESSION: Infrarenal abdominal aortic aneurysm measuring 5.2 x 4.6 cm. No explanation for diarrhea. Cervical Spine CT 09/12/17 00:00 IMPRESSION: Chronic degenerative cervical spine changes without evidence of acute fracture or malalignment. Head CT 09/12/17 00:00 IMPRESSION: No acute intracranial abnormality. EVIDENCE OF ACUTE STROKE: NO. Assessment & Plan - Diagnosis (1) Diarrhea Qualifiers: Diarrhea type: unspecified type Qualified Code(s): R19.7 - Diarrhea, unspecified Is this a current diagnosis for this admission?: Yes Plan: C. difficile toxin assay is negative. Cultures have been ordered and are pending. The differential includes infectious diarrhea, food poisoning, medication effect or diffuse colitis. This is unlikely to be infectious as no other family members are ill. However, if an organism has a long incubation period Then it is still possible. Food poisoning should be more self-limited than this patient's illness. I will need to check the patient's current medications. There is no evidence of colitis on the CT scan which is reassuring. The patient will be treated supportively for now. I will hold off on antibiotics. Due to eosinophilia I am considering parasites. Stool cultures pending. Stool for ova and parasites is pending. (2) Intractable vomiting Qualifiers: Vomiting type: unspecified Nausea presence: unspecified Qualified Code(s) : R11.10 - Vomiting, unspecified Is this a current diagnosis for this admission?: Yes Plan: Continue supportive treatment. Differential as above. Continue anti-emetics. (3) Eosinophilic leukocytosis Is this a current diagnosis for this admission?: Yes Plan: This is likely associated with the acute illness. Further investigation for parasites is underway. (4) Diabetes type 2, controlled Qualifiers: Diabetes mellitus complication detail: with unspecified neuropathy Is this a current diagnosis for this admission?: Yes Plan: For now, I will hold long-acting insulin and treat with sliding scale. Blood sugars are all under 200. Tradjenta is also being held as is sulfonylurea. (5) Neuropathy Is this a current diagnosis for this admission?: Yes Plan: Stable. (6) Coronary artery disease Is this a current diagnosis for this admission?: Yes Plan: I will continue the patient's cardiac medications. (7) Cerebrovascular disease Is this a current diagnosis for this admission?: Yes Plan: Continue cardiovascular medications. (8) Hypothyroidism Is this a current diagnosis for this admission?: Yes Plan: Continue supplementation with Synthroid. (9) Pulmonary fibrosis Is this a current diagnosis for this admission?: Yes Plan: I will ensure that pirfenidone is not associated with this side effect and if it is not I will continue the medication. Perfenidone does not appear to be associated with diarrhea. (10) Cervical spine disease Is this a current diagnosis for this admission?: Yes Plan: This problem was incidentally found on imaging. Patient is aware. His symptoms are stable for now. He has received injections in the past. (11) Thyroid nodule Is this a current diagnosis for this admission?: Yes Plan: This was also an incidental finding on imaging. I told the patient that he may require a biopsy of this nodule. He is aware that he has thyroid disease and thyroid nodules but is not aware that a biopsy has been performed. He will follow-up with his physician in [place] for further testing if warranted. - Time Time Spent with patient: 25-34 minutes - Inpatient Certification Medical Necessity: Need For IV Fluids, Risk of Complication if Not Cared For in Hospital, Risk of Diagnosis Which Will Require Inpatient Eval/Care/Monitoring - The patient will be changed to inpatient status. He is not stable for discharge. Unfortunately, I have not been able to advance the patient's diet and he still requires intravenous fluids. Due to the prolonged nature of his symptoms he is at risk for renal failure, electrolyte disturbances and hyper and hypoglycemia. The patient is relatively immune suppressed due to his diabetes. He should not be discharged without knowing his stool culture results. This is particularly important since the patient does not live in the general area and has no way to follow-up on the results if discharged today.
[2017-09-12] MEDS: INSULIN REG, HUMAN 100 UNIT/ML 3 ML VIAL (PYX) SUBCUT PRN ×2 (16:57→21:58)
[2017-09-12] MEDS: ATORVASTATIN CALCIUM 40 MG TABLET PO SCH (21:55)
[2017-09-13] MEDS: DEXTROSE 5%-1/2 NORMAL SALINE 1,000 ML IV PRN (06:33)
[2017-09-13] MEDS: LEVOTHYROXINE SODIUM 0.1 MG TABLET PO SCH (06:33)
[2017-09-13 07:14] LABS: ABSOLUTE BASOPHILS # (AUTO) 0.1 10^3/uL (0.0-0.2); ABSOLUTE EOSINOPHILS # (AUTO) 0.8 10^3/uL (0.0-0.6); ABSOLUTE LYMPHOCYTES (AUTO) 2.6 10^3/uL (0.5-4.7); ABSOLUTE MONOCYTES (AUTO) 1.1 10^3/uL (0.1-1.4); ABSOLUTE NEUT (AUTO) 6.2 10^3/uL (1.7-8.2); BASOPHILS % (AUTO) 0.7 % (0-2); EOSINOPHILS % (AUTO) 7.8 % (0-6); HEMATOCRIT 36.9 % (37.9-51.0); HEMOGLOBIN 12.5 g/dL (13.5-17.0); HGB HCT DIFFERENCE 0.6; MEAN CORPUSCULAR HEMOGLOBIN 30.3 pg (27.0-33.4); MEAN CORPUSCULAR HGB CONC 33.9 g/dL (32.0-36.0); MEAN CORPUSCULAR VOLUME 89 fl (80-97); MONOCYTES % (AUTO) 10.4 % (3-13); RED BLOOD COUNT 4.13 10^6/uL (4.35-5.55); RED CELL DISTRIBUTION WIDTH 14.8 % (11.5-14.0); SEGMENTED NEUTROPHILS % (AUTO) 57.1 % (42-78); WHITE BLOOD COUNT 10.8 10^3/uL (4.0-10.5)
[2017-09-13 07:37] LABS: ANION GAP 12 (5-19); BLOOD UREA NITROGEN 7 mg/dL (7-20); CALCIUM 8.9 mg/dL (8.4-10.2); CARBON DIOXIDE 25 mmol/L (22-30); CHLORIDE 106 mmol/L (98-107); CREATININE RESULT 0.71 mg/dL (0.52-1.25); GLUCOSE 135 mg/dL (75-110); MAGNESIUM 1.6 mg/dL (1.6-2.3); PHOSPHORUS 3.7 mg/dL (2.5-4.5); POTASSIUM 3.5 mmol/L (3.6-5.0); SODIUM 143.1 mmol/L (137-145)
[2017-09-13] MEDS: ISOSORBIDE MONONITRATE 30 MG TAB.ER.24H PO SCH (10:12)
[2017-09-13] MEDS: ASPIRIN 81 MG TABLET, CHEWABLE PO SCH (10:13)
[2017-09-13] MEDS: FAMOTIDINE INJ/PF 20 MG/2 ML SDV IV SCH (10:13)
[2017-09-13] MEDS: DULOXETINE HCL 30 MG CAPSULE.DR PO SCH (10:13)
[2017-09-13] MEDS: CHOLECALCIFEROL (D3) 1,000 UNIT TABLET PO SCH (10:13)
[2017-09-13] MEDS: CLOPIDOGREL BISULFATE 75 MG TABLET PO SCH (10:13)
[2017-09-13] MEDS: BACLOFEN 10 MG TABLET PO SCH (10:13)
[2017-09-13] MEDS: AMLODIPINE BESYLATE 5 MG TABLET PO SCH (10:13)
[2017-09-13] MEDS: INSULIN REG, HUMAN 100 UNIT/ML 3 ML VIAL (PYX) SUBCUT PRN (12:01)
[2017-09-13 15:49] VITALS: BP 120/77
--- NOTE | 2017-09-13 15:59 | PDOC DISCHARGE SUMMARY ---
General - Admit/Disc Date/PCP Admission Date/Primary Care Provider: 09/11/17 17:33 Discharge Date: 09/13/17 - Discharge Diagnosis (1) Diarrhea Is this a current diagnosis for this admission?: Yes (2) Intractable vomiting Is this a current diagnosis for this admission?: Yes (3) Eosinophilic leukocytosis Is this a current diagnosis for this admission?: Yes (4) Diabetes type 2, controlled Is this a current diagnosis for this admission?: Yes (5) Neuropathy Is this a current diagnosis for this admission?: Yes (6) Coronary artery disease Is this a current diagnosis for this admission?: Yes (7) Cerebrovascular disease Is this a current diagnosis for this admission?: Yes (8) Hypothyroidism Is this a current diagnosis for this admission?: Yes (9) Pulmonary fibrosis Is this a current diagnosis for this admission?: Yes (10) Cervical spine disease Is this a current diagnosis for this admission?: Yes (11) Thyroid nodule Is this a current diagnosis for this admission?: Yes - Additional Information Resuscitation Status: Full Code Discharge Diet: Other (Comments) - Low residue diet (low fiber) for 1 week Discharge Activity: Activity As Tolerated Home Medications: Alfuzosin HCl [Alfuzosin HCl ER] 10 mg PO QPM 09/11/17 Amlodipine Besylate [Norvasc 5 mg Tablet] 5 mg PO QPM 09/11/17 Aspirin 81 mg PO DAILY 09/11/17 Atorvastatin Calcium 40 mg PO QHS 09/11/17 Cholecalciferol (Vitamin D3) [Vitamin D3] 1,000 unit PO DAILY 09/11/17 Clopidogrel Bisulfate [Clopidogrel] 75 mg PO DAILY 09/11/17 Duloxetine HCl [Cymbalta] 60 mg PO Q12 09/11/17 Glimepiride 4 mg PO DAILY 09/11/17 Insulin Degludec [Tresiba Flextouch U-100] 32 unit SQ QPM 09/11/17 Isosorbide Mononitrate [Isosorbide Mononitrate ER] 30 mg PO DAILY 09/11/17 Levothyroxine Sodium 100 mcg PO DAILY 09/11/17 Linagliptin [Tradjenta] 5 mg PO DAILY 09/11/17 Mirabegron [Myrbetriq] 25 mg PO QPM 09/11/17 [place]-3 Fatty Acids/Fish Oil [Fish Oil 1,000 mg Capsule] 1,000 mg PO DAILY 09/11 Pantoprazole Sodium [Protonix] 40 mg PO BID 09/11/17 Pirfenidone [Esbriet] 801 mg PO MEALS 09/11/17 Baclofen [Baclofen 10 mg Tablet] 10 mg PO BID tablet 09/13/17 Cholecalciferol (Vitamin D3) [Vitamin D3 1000 Unit Tablet] 1,000 unit PO DAILY tablet 09/13/17 Ondansetron [Zofran Odt 4 mg Tablet] 4 mg PO Q8HP PRN 7 Days #21 tab.rapdis History of Present Illness History of Present Illness: KHURRAM BLOOM is a 72 year old male who is currently in town visiting family. Normally, he lives in [place]. The patient is here with his . They drove here last Thursday. On Thursday he was feeling fine. Thursday morning he woke up and developed horrible cramping in his lower abdomen followed by explosive diarrhea. Initially, he had several hours worth of diarrhea. Then he started to have vomiting with diarrhea. The diarrhea is uncontrollable and explosive. It is waking him up from sleep. Every time he tries to drink fluids he vomits the fluids. The fluids also aggravate the diarrhea. He has not had any fevers. He has not noticed any blood in the diarrhea. He has no ill contacts. He has been with his very closely and she is not ill. He has been visiting family into homes and no one is ill. The only thing that he ate which was different than his is [employer] main in the [facility] while they were driving on Thursday. The patient started to feel better on Thursday and a part of a sandwich. About an hour later this led to worsened nausea, vomiting or diarrhea. He went to see a provider at urgent care on Thursday and was started on Zofran. Unfortunately, he has been using the Zofran as prescribed without any relief. He tried to eat turkey and mashed potatoes yesterday but his symptoms got progressively worse. He describes the diarrhea is foul-smelling. He describes the color is green and angulo. His urine is dark. His only other symptoms are intermittent frontal headaches. He feels generally weak and states that he has lost 14 pounds since last Thursday. Hospital Course Hospital Course: The patient was admitted for supportive treatment for severe and intractable nausea with vomiting and diarrhea. Patient was treated with intravenous fluids. He did present with a leukocytosis. He did have an elevated eosinophil count. Stool analysis has been sent for ova and parasites but is pending at this time. The patient's leukocytosis has improved during this hospitalization. PCR analysis for C. difficile toxin is negative. Stool culture is negative. Patient did not have any major electrolyte disturbances during this hospitalization. His magnesium and potassium are slightly low at discharge and he will be given prescriptions for supplementation at discharge. In the emergency department he had an abdominal and pelvic CT scan. There were no significant abnormalities regarding the colon. The patient appears to have a stable abdominal aortic aneurysm. Due to a logistical issue the patient did undergo a CT scan of the head and neck. The CT scan of the head demonstrated chronic changes of the paranasal sinuses. The patient is also noted to have cervical disc disease. However, an incidental finding is a thyroid nodule. Patient has a 2 cm right thyroid nodule which will warrant further evaluation as an outpatient. The patient was instructed to follow a low residue diet for 1 week. At the time of discharge he is tolerating solid foods. He has mild nausea controlled with Zofran. He is having occasional episodes of diarrhea. He was instructed to use Imodium [id number] as needed. All of his routine home medications will be resumed at discharge. Physical Exam Vital Signs: Temp Pulse Resp BP Pulse Ox 98.0 F 66 16 119/61 98 09/13/17 08:28 09/13/17 08:28 09/13/17 08:28 09/13/17 08:28 09/13/17 08:28 Intake & Output 09/12/17 09/13/17 09/14/17 06:59 06:59 06:59 Intake Total 1405 2992 Output Total 900 1245 Balance 505 1747 Weight 98.4 kg 98 kg Additional comments: The patient appears much improved. He is not in any distress and appears nontoxic. His facial appearance is normal. He is missing many teeth and has some dental caries noted. His lungs are clear anteriorly. He does have a Velcro rales in the posterior lung pelaez at the bases. They extend one quarter [address] the way up. They are stable. His cardiac exam demonstrates a regular rate and rhythm. He does not have any murmurs, gallops or rubs. The abdomen today is less distended. The abdomen is not tympanitic. Bowel sounds are quiet. They are present. No guarding or rebound is noted. The patient only has minimal tenderness with deep palpation in the right upper quadrant slightly more than the left upper quadrant. No hernias or masses are present. Patient's lower extremities are warm to touch. The skin is warm, dry and intact without lesions or rashes. Results Laboratory Results: 09/13/17 06:30 09/13/17 06:30 09/13/17 09/13/17 06:30 06:30 WBC 10.8 H RBC 4.13 L Hgb 12.5 L Hct 36.9 L MCV 89 MCH 30.3 MCHC 33.9 RDW 14.8 H Plt Count 230 Seg Neutrophils % 57.1 Lymphocytes % 24.0 Monocytes % 10.4 Eosinophils % 7.8 H Basophils % 0.7 Absolute Neutrophils 6.2 Absolute Lymphocytes 2.6 Absolute Monocytes 1.1 Absolute Eosinophils 0.8 H Absolute Basophils 0.1 Sodium 143.1 Potassium 3.5 L Chloride 106 Carbon Dioxide 25 Anion Gap 12 BUN 7 Creatinine 0.71 Est GFR ( Amer) > 60 Est GFR (Non-Af Amer) > 60 Glucose 135 H Calcium 8.9 Phosphorus 3.7 Magnesium 1.6 Impressions: Abdomen/Pelvis CT 09/11/17 00:00 IMPRESSION: Infrarenal abdominal aortic aneurysm measuring 5.2 x 4.6 cm. No explanation for diarrhea. Cervical Spine CT 09/12/17 00:00 IMPRESSION: Chronic degenerative cervical spine changes without evidence of acute fracture or malalignment. Head CT 09/12/17 00:00 IMPRESSION: No acute intracranial abnormality. EVIDENCE OF ACUTE STROKE: NO. Qualifiers VTE patient discharged on overlapping Therapy?: No Reason(s) for not prescribing Overlap Therapy:: Not indicated - Patient was ambulatory. Plan Discharge Plan: 1. Follow-up with primary healthcare science specialist upon returning to [place]. I would recommend an appointment in 1 week if possible. Follow-up chemistry analysis is recommended at that visit including magnesium. 2. Return to the emergency department or urgent care clinic for recurrence of symptoms. 3. Follow a low fiber diet for 1 week. Time Spent: Less than 30 Minutes
== END 2017-09-13 16:54 | disposition home or self-care (01) | DRG 392 ==
LOC: ER 10:41 → EH 17:33 → OBSVTOIN 17:33 → 4N 18:39
PROVIDERS: ADMIT Internal Medicine Pulmonary Disease; ATTEND Internal Medicine Pulmonary Disease
DX: R11.2 Nausea with vomiting, unspecified (principal); K58.0 Irritable bowel syndrome with diarrhea; D72.1 Eosinophilia; E11.40 Type 2 diabetes mellitus with diabetic neuropathy, unspecified; I25.10 Atherosclerotic heart disease of native coronary artery without angina pectoris; E03.9 Hypothyroidism, unspecified; M50.30 Other cervical disc degeneration, unspecified cervical region; J84.10 Pulmonary fibrosis, unspecified; E04.1 Nontoxic single thyroid nodule; I67.9 Cerebrovascular disease, unspecified; Z79.899 Other long term (current) drug therapy; Z79.4 Long term (current) use of insulin; Z79.82 Long term (current) use of aspirin; Z95.5 Presence of coronary angioplasty implant and graft; Z95.0 Presence of cardiac pacemaker; Z95.1 Presence of aortocoronary bypass graft; Z90.49 Acquired absence of other specified parts of digestive tract; Z87.891 Personal history of nicotine dependence; Z82.49 Family history of ischemic heart disease and other diseases of the circulatory system; Z82.61 Family history of arthritis; Z83.6 Family history of other diseases of the respiratory system; Z88.0 Allergy status to penicillin; Z88.8 Allergy status to other drugs, medicaments and biological substances; Z88.3 Allergy status to other anti-infective agents; Z91.040 Latex allergy status
CPT/HCPCS: 36415; 70450; 72125; 74177; 80048; 80053; 81001; 82272; 82962; 83690; 83735; 84100; 85025; 87045; 87177; 87205; 87493; 96361; 96374; 99285; G0378; J1815; J2405; J3490; J7120; S0028; S0119